=== PATIENT | female | born 1970 | race African-American/Black ===

== ENCOUNTER 2016-11-21 20:45 | Emergency (ER) | payer OTHER ==
[2016-11-21 21:08] VITALS: BP 145/69; PULSE 84; TEMP 98.8; BMI 30.8
[2016-11-21] MEDS ORDERED: ONDANSETRON 4 MG/2 ML VIAL IVPUSH ONE (21:14)
[2016-11-21] MEDS ORDERED: FAMOTIDINE 20 MG/50 ML IVPB 50 ML IVPB ONE ×2 (21:33→21:46)
[2016-11-21] MEDS ORDERED: SODIUM CHLORIDE 0.9% 1000 ML INFUS.BAG IV ONE (21:33)
[2016-11-21 21:44] LABS: BASOPHIL 0.5 % (0-2.0); EOSINOPHIL 0.6 % (0-4.5); MCH 29.7 pg (25.7-33.7); MCHC 34.2 g/dl (32.0-36.0); MEAN CELL VOLUME 87.1 fl (80-96); MEAN PLT VOLUME 8.1 fl (7.5-11.1); NEUTROPHILS 60.3 % (42.8-82.8); PLATELET COUNT 309 K/MM3 (134-434); RDW 12.8 % (11.6-15.6); WHITE BLOOD COUNT 7.4 K/mm3 (4.0-10.0)
[2016-11-21 22:07] LABS: ALBUMIN 4.6 g/dl (3.4-5.0); ALK PHOS 87 U/L (45-117); ANION GAP 12 (8-16); BILIRUBIN,TOTAL 0.5 mg/dL (0.2-1.0); CALCIUM 10.6 mg/dL (8.5-10.1); CO2 28 mmol/L (21-32); CREATININE 0.9 mg/dL (0.55-1.02); GLUCOSE,RANDOM 156 mg/dL (74-106); SGOT/AST 40 U/L (15-37); SGPT/ALT 63 U/L (12-78); TOT PROT 8.3 g/dl (6.4-8.2)
[2016-11-21] MEDS ORDERED: KETOROLAC TROMETHAMINE 30 MG/1 ML VIAL IVPUSH ONE (22:33)
[2016-11-21 22:47] LABS: URINE APPEARANCE CLOUDY; URINE BILIRUBIN NEGATIVE (NEGATIVE); URINE BLOOD 1+ (NEGATIVE); URINE COLOR YELLOW; URINE GLUCOSE (UA) NEGATIVE (NEGATIVE); URINE KETONE 1+ (NEGATIVE); URINE NITRITE NEGATIVE (NEGATIVE); URINE PROTEIN NEGATIVE (NEGATIVE); URINE UROBILINOGEN NEGATIVE mg/dL (0.2-1.0)
[2016-11-21 22:54] LABS: URINE BACTERIA RARE /hpf (NONE SEEN); URINE MUCUS RARE; URINE RBC 4 /hpf (0-3); URINE WBC 2 /hpf (3-5)
[2016-11-21] MEDS ORDERED: KETOROLAC TROMETHAMINE 30 MG/1 ML VIAL ONE (22:54)
--- NOTE | 2016-11-21 23:18 | PDOC ---
History of Present Illness - General Chief Complaint: Nausea/Vomiting Stated Complaint: ABD PAIN Time Seen by Provider: 11/21/16 21:13 - History of Present Illness Initial Comments: 11/21/16 23:16 CHIEF COMPLAINT: abd pain HISTORY OF PRESENT ILLNESS: 46 yo F with hx of "heartburn" presents to ED with epigastric pain since this morning. Patient states she ate a big meal last night before going to bed, and when she woke up she had abdominal pain that has continued all day. Patient states she felt nauseous and vomited once this morning, and had two normal stools and "one episode of watery stool" this evening. She denies any fever or chills. PAST MEDICAL HISTORY: Denies past medical history FAMILY HISTORY: Denies SOCIAL HISTORY: Denies tobacco, alcohol, illicit drug use. SURGICAL HISTORY: Denies ALLERGIES: PCN REVIEW OF SYSTEMS as per HPI PHYSICAL EXAM General Appearance: Well-appearing, appropriately dressed. No apparent distress. HEENT: EOMI, PERRLA, normal ENT inspection, normal voice, TMs normal, pharynx normal. No conjunctival pallor. No photophobia, scleral icterus. Respiratory/Chest: Lungs CTAB. Cardiovascular: RRR. S1, S2. Gastrointestinal/Abdominal: Epigastric tenderness. Negative Schuler's sign. Abdomen soft, non-distended. No organomegaly, pulsatile mass, guarding, hernia , hepatomegaly, splenomegaly. Musculoskeletal/Extremities: Normal inspection. FROM of all extremities, normal capillary refill. Pelvis Stable. No CVA tenderness. No tenderness to extremities, pedal edema, swelling, erythema or deformity. Integumentary: Appropriate color, dry, warm. No cyanosis, erythema, jaundice or rash Neurologic: mat packer II-XII intact. Fully oriented, alert. Appropriate mood/affect. Motor strength 5/5. No appreciable EOM palsy, facial droop or sensory deficit. 11/21/16 23:33 Past History - Past Medical History Allergies/Adverse Reactions: Allergies Allergy/AdvReac Type Severity Reaction Status Date / Time Penicillins Allergy Verified 11/21/16 21:07 Home Medications: Ambulatory Orders Pantoprazole Sodium [Protonix] 40 mg PO DAILY #14 tablet. 11/22/16 - Suicide/Smoking/Psychosocial Hx Smoking History: Never smoked Have you smoked in the past 12 months: No Information on smoking cessation initiated: No Hx Alcohol Use: Yes (social) Drug/Substance Use Hx: No *Physical Exam - Vital Signs Last Vital Signs Temp Pulse Resp BP Pulse Ox 98.8 F 84 18 145/69 98 11/21/16 21:04 11/21/16 21:04 11/21/16 21:04 11/21/16 21:04 11/21/16 21:04 ED Treatment Course - LABORATORY CBC & Chemistry Diagram: 11/21/16 21:37 11/21/16 21:37 - ADDITIONAL ORDERS Additional order review: Laboratory Results 11/21/16 11/21/16 11/21/16 22:22 22:22 21:37 Sodium 136 Potassium 3.9 Chloride 96 L Carbon Dioxide 28 Anion Gap 12 BUN 13 Creatinine 0.9 Creat Clearance w eGFR > 60 Random Glucose 156 H Calcium 10.6 H Total Bilirubin 0.5 AST 40 H ALT 63 Alkaline Phosphatase 87 Total Protein 8.3 H Albumin 4.6 Lipase Urine Color Yellow Urine Appearance Cloudy Urine pH 7.0 Urine Protein Negative Urine Glucose (UA) Negative Urine Ketones 1+ H Urine Blood 1+ H Urine Nitrite Negative Urine Bilirubin Negative Urine Urobilinogen Negative Urine RBC 4 Urine WBC 2 Ur Epithelial Cells Rare Urine Bacteria Rare Urine Mucus Rare Urine HCG, Qual Negative 11/21/16 21:13 Sodium Potassium Chloride Carbon Dioxide Anion Gap BUN Creatinine Creat Clearance w eGFR Random Glucose Calcium Total Bilirubin AST ALT Alkaline Phosphatase Total Protein Albumin Lipase 120 Urine Color Urine Appearance Urine pH Urine Protein Urine Glucose (UA) Urine Ketones Urine Blood Urine Nitrite Urine Bilirubin Urine Urobilinogen Urine RBC Urine WBC Ur Epithelial Cells Urine Bacteria Urine Mucus Urine HCG, Qual 11/21/16 21:37 RBC 4.94 MCV 87.1 MCHC 34.2 RDW 12.8 MPV 8.1 Neutrophils % 60.3 Lymphocytes % 34.3 Monocytes % 4.3 Eosinophils % 0.6 Basophils % 0.5 - Medications Given in the ED: ED Medications Discontinued Medications Generic Name Dose Route Start Last Admin Trade Name Freq PRN Reason Stop Dose Admin Famotidine/Sodium Chloride 50 mls @ 100 mls/hr 11/21/16 21:33 11/21/16 22:14 Pepcid 20 Mg Premixed Ivpb - IVPB 11/21/16 22:02 100 mls/hr ONCE ONE Administration Ondansetron HCl 8 mg 11/21/16 21:14 11/21/16 21:14 Zofran Injection IVPUSH 11/21/16 21:15 8 mg ONCE ONE Administration Sodium Chloride 1,000 ml 11/21/16 21:33 11/21/16 22:14 Normal Saline - IV 11/21/16 21:34 1,000 ml ONCE ONE Administration Medical Decision Making - Medical Decision Making 11/21/16 23:40 46 yo F with hx of "heartburn" presents to ED with epigastric pain since this morning. -CBC, CMP, lipase -Ua, Ucx, Upreg -Pepcid IV, Zofran -Toradol 30 mg Patient states she is feeling "somewhat better" after pepcid, zofran, and toradol but "it still feels a little weird in the middle. -Maalox, protonix, bentyl 11/22/16 00:24 Patient reports she is now feeling much better, "my pain is maybe like a 1 or 2 down from a 7 or 8 from when I first came in." Patient reports she wants to go home. Advised patient to follow up with primary care doctor and GI if symptoms persist. Advised patient of signs and symptoms for return to eR; patient verbalized understanding and agrees to plan. *DC/Admit/Observation/Transfer Diagnosis at time of Disposition: Abdominal pain Qualifiers: Abdominal location: epigastric Qualified Code(s): R10.13 - Epigastric pain; R10.13 - Epigastric pain GERD (gastroesophageal reflux disease) Qualifiers: Esophagitis presence: with esophagitis Qualified Code(s): K21.0 - Gastro- esophageal reflux disease with esophagitis; K21.0 - Gastro-esophageal reflux disease with esophagitis; K21.0 - Gastro-esophageal reflux disease with esophagitis - Discharge Dispostion Disposition: HOME Condition at time of disposition: Improved Admit: No - Prescriptions Prescriptions: Pantoprazole Sodium [Protonix] 40 mg PO DAILY #14 tablet. - Referrals Referrals: Murali Glynn [Primary Care Provider] - - Patient Instructions Printed Discharge Instructions: DI for Abdominal Pain-Adult, DI for Gastroesophageal Reflux Disease (GERD) Additional Instructions: Please take medication as prescribed. As discussed, you need to follow up with Dr. Kimball this week. I have provided a referral to a paper sales manager for you to see if your symptoms persist. If you develop any fever, chills, persistent vomiting, diarrhea, bloody stool, or any new or worsening symptoms, please return to the ER. - Post Discharge Activity Forms/Work/School Notes: Back to Work
[2016-11-21] MEDS ORDERED: DICYCLOMINE HCL 20 MG TABLET PO ONE (23:32)
[2016-11-21] MEDS ORDERED: PANTOPRAZOLE SODIUM 40 MG in SODIUM CHLORIDE 100 ML IVPB ONE (23:32)
[2016-11-21] MEDS ORDERED: MAG HYDROX/AL HYDROX/SIMETH 30 ML UNIT-DOSE CUP PO ONE (23:32)
[2016-11-21] MEDS ORDERED: DICYCLOMINE HCL 10 MG CAPSULE ONE (23:48)
[2016-11-21] MEDS ORDERED: MAG HYDROX/AL HYDROX/SIMETH 30 ML UNIT-DOSE CUP ONE (23:48)
[2016-11-21] MEDS ORDERED: PANTOPRAZOLE SODIUM 40 MG VIAL ONE (23:49)
[2016-11-22 14:09] LABS: URINE LEUK ESTERASE Negative (NEGATIVE)
== END 2016-11-22 00:35 | disposition home or self-care (01) ==
LOC: JER 20:45
PROC: 3E033GC Introduction of Other Therapeutic Substance into Peripheral Vein, Percutaneous Approach (ICD-10-PCS; principal; 2016-11-21)
PROC: 3E033GC Introduction of Other Therapeutic Substance into Peripheral Vein, Percutaneous Approach (ICD-10-PCS; 2016-11-21)
PROC: 3E0333Z Introduction of Anti-inflammatory into Peripheral Vein, Percutaneous Approach (ICD-10-PCS; 2016-11-21)
PROC: 3E033GC Introduction of Other Therapeutic Substance into Peripheral Vein, Percutaneous Approach (ICD-10-PCS; 2016-11-21)
DX: K21.0 Gastro-esophageal reflux disease with esophagitis (principal)
CPT/HCPCS: 36415; 80053; 81003; 81015; 83690; 84703; 85025; 87086; 87186; 99281-25

== ENCOUNTER 2018-05-06 07:27 | Emergency (ER) | payer OTHER ==
[2018-05-06 07:35] VITALS: BMI 29.4
[2018-05-06] MEDS ORDERED: FAMOTIDINE 20 MG/50 ML IVPB 20 MG/50 ML MG IVPB ONE ×2 (07:52→08:45)
[2018-05-06] MEDS ORDERED: ONDANSETRON 4 MG/2 ML VIAL IVPB ONE (07:52)
[2018-05-06] MEDS ORDERED: MAG HYDROX/AL HYDROX/SIMETH 30 ML UNIT-DOSE CUP PO ONE (07:52)
[2018-05-06] MEDS ORDERED: ACETAMINOPHEN 1000 MG/100 ML VIAL (NON FORMULARY) IVPB ONE (07:52)
--- NOTE | 2018-05-06 07:55 | PDOC ---
Attending Attestation - Resident Resident Name: RuthySaMariama - ED Attending Attestation I have performed the following: I have examined & evaluated the patient, The case was reviewed & discussed with the resident, I agree w/resident's findings & plan, Exceptions are as noted - HPI HPI: 05/06/18 08:44 47yo female with hx of DM - prescribed metformin this week, but hasn't started. Ate salad and fried chicken last night and today has felt burning in her epigastric region with radiation up into her chest. States she has felt acid reflux in the past and today feels similar. No n/v/d. No dysuria. No cp/sob. No fevers. Pt is nontoxic in appearance. - Physicial Exam PE: 05/06/18 09:33 Gen: aaox3, nad heart: +s1s2 reg lungs: cta b/l abd: soft, mild epigastric ttp, no rebound or guarding ext: no c/c/e - Medical Decision Making 05/06/18 07:55 I, Dr. Onelia Quinn, DO, attest that this document has been prepared under my direction and personally reviewed by me in its entirety. I further attest, that it accurately reflects all work, treatment, procedures and medical decision -making performed by me. 05/06/18 09:33 a/p: 47yo female with epigastric pain and burning sensation -suspect acid reflux and gastritis -bedside ultrasound negative for gallstones -neg murphys -will send labs, given hx of dm - hasn't started meds -will obtain ekg -will medicate and reassess -low suspicion for pancreatitis- abd is soft, will send lipase -ivf hydration 05/06/18 09:35 lipase negative lft normal no elevated wbc pain resolved will repeat lactate and po challenge if repeat lactate normal will dc with pepcid and GI follow up with Dr. Santo. Heart Score/ECG Review - ECG Intrepretation Comment:: 05/06/18 07:57 sinus at 79, nl axis, nl interval, no acute st/t wave findings
--- NOTE | 2018-05-06 08:09 | PDOC ---
History of Present Illness - General Chief Complaint: Pain, Acute Stated Complaint: PAIN Time Seen by Provider: 05/06/18 07:36 History Source: Patient Exam Limitations: No Limitations - History of Present Illness Initial Comments: 05/06/18 08:02 Pt is a 47yo F with PMH of DM (recently dx) presenting to ED for burning sensation in the abdomen and L side of chest. Pt states that this morning she woke up with a burning sensation diffusely in her abdomen. She drank mint tea and felt the pain go into her chest. She said she took Advil to help with the pain but it made it worse. She has had pain like this before and was told it was heartburn. She is not taking any antacids. She endorses nausea. Denies vomiting, bloody/tarry stools, diarrhea, sob, cough, pleuritic chest pain, leg swelling, back pain, flank pain, urinary symptoms. No recent abdominal surgeries. She had chicken last night, denies drinking. PMD: Renard PMH: see hpi PSH: abdominopasy, salpingoophorectomy Meds: none Allergies: PCN (hives) Social: occasional alcohol use Past History - Past Medical History Allergies/Adverse Reactions: Allergies Allergy/AdvReac Type Severity Reaction Status Date / Time Penicillins Allergy Verified 05/06/18 07:35 Home Medications: Ambulatory Orders Famotidine [Pepcid -] 20 mg PO BID #14 tablet 05/06/18 COPD: No GI Disorders: Yes (reflux) - Suicide/Smoking/Psychosocial Hx Smoking History: Never smoked Have you smoked in the past 12 months: No Hx Alcohol Use: Yes (social) Drug/Substance Use Hx: No Review of Systems - Review of Systems Constitutional: No: Chills, Fever HEENTM: No: Symptoms Reported Respiratory: No: Cough, Shortness of Breath Cardiac (ROS): Yes: See HPI. No: Lightheadedness, Palpitations, Syncope ABD/GI: Yes: Nausea, Abdominal cramping. No: Constipated, Diarrhea, Rectal Bleeding, Vomiting, Tarry Stools : No: Burning, Dysuria Musculoskeletal: No: Back Pain, Joint Pain, Neck Pain Integumentary: No: Symptoms Reported Neurological: No: Headache, Numbness, Tingling *Physical Exam - Vital Signs Last Vital Signs Temp Pulse Resp BP Pulse Ox 99.5 F 115 H 22 H 96/67 100 05/06/18 07:50 05/06/18 07:50 05/06/18 07:50 05/06/18 07:50 05/06/18 07:31 - Physical Exam General Appearance: Yes: Nourished, Appropriately Dressed. No: Apparent Distress HEENT: positive: EOMI, RUBI, Normal ENT Inspection Neck: positive: Trachea midline, Supple. negative: Lymphadenopathy (R), Lymphadenopathy (L) Respiratory/Chest: positive: Lungs Clear, Normal Breath Sounds. negative: Crackles, Rales, Wheezing Cardiovascular: positive: Regular Rhythm, Regular Rate, S1, S2. negative: Edema , JVD Vascular Pulses: Carotid (R): 2+, Carotid (L): 2+, Dorsalis-Pedis (R): 2+, Doralis-Pedis (L): 2+ Gastrointestinal/Abdominal: positive: Normal Bowel Sounds, Tender (diffuse tenderness), Soft Musculoskeletal: negative: CVA Tenderness Extremity: positive: Normal Capillary Refill. negative: Pedal Edema, Swelling Integumentary: positive: Normal Color, Dry, Warm Neurologic: positive: histologist technologist II-XII NML intact, Fully Oriented, Alert, Normal Mood/ Affect, Normal Response, Motor Strength / ED Treatment Course - LABORATORY CBC & Chemistry Diagram: 05/06/18 07:57 05/06/18 08:15 Medical Decision Making - Medical Decision Making 05/06/18 08:09 Pt is a 47yo F with PMH of DM (recently dx) presenting to ED for burning sensation in the abdomen and L side of chest. Pt states that this morning she woke up with a burning sensation diffusely in her abdomen. She drank mint tea and felt the pain go into her chest. She said she took Advil to help with the pain but it made it worse. She has had pain like this before and was told it was heartburn. She is not taking any antacids. She endorses nausea. Denies vomiting, bloody/tarry stools, diarrhea, sob, cough, pleuritic chest pain, leg swelling, back pain, flank pain, urinary symptoms. No recent abdominal surgeries. She had chicken last night, denies drinking. Vitals: wnl PE: diffuse abdominal tenderness ddx includes but not limited to gerd/gastritis, PUD, pancreatitis, cholecystitis , cholelithiasis, nephrolithiasis, pyelo, atypical ACS, AAA -labs, trop, lipase, lact -ekg -fluids, zofran, pepcid, maalox, iv tylenol will hold off imaging at this time, high suspicion for gerd/gastritis. will wait to see what labs are like to determine. 05/06/18 09:04 POCUS- no sonographic evidence of cholecystitis. LFTs normal, cbc normal. lactic 2.2 (pt getting hydrated). Will reassess second lact 2.4 will hydrate and check again 3rd lac 1.5. pt does not have pain, is asymptomatic and stable for dc. rx for pepcid and gi f/u. given return precautions 05/06/18 19:39 *DC/Admit/Observation/Transfer Diagnosis at time of Disposition: GERD (gastroesophageal reflux disease) Qualifiers: Esophagitis presence: esophagitis presence not specified Qualified Code(s): K21.9 - Gastro-esophageal reflux disease without esophagitis Abdominal pain Qualifiers: Abdominal location: unspecified location Qualified Code(s): R10.9 - Unspecified abdominal pain - Discharge Dispostion Disposition: HOME Condition at time of disposition: Improved - Prescriptions Prescriptions: Famotidine [Pepcid -] 20 mg PO BID #14 tablet - Referrals Referrals: Murali Glynn [Primary Care Provider] - Rohit Santo MD [Staff Physician] - - Patient Instructions Printed Discharge Instructions: DI for Gastroesophageal Reflux Disease (GERD) Additional Instructions: You were seen in the emergency room today for abdominal and chest pain. This is most likely GERD. A prescription has been sent for an antacid. Please take as directed. I recommend that you make an appointment with your primary care doctor so that you can be started on the proper medications to prevent heartburn. I also recommend seeing a GI doctor as well. Information is provided below. Try not to eat fried, fatty foods or consume a lot of alcohol as this can make the pain worse. Also try to avoid NSAIDs such as Advil, Motrin, Aleeve. Come back to the emergency room if pain gets worse, you start vomiting blood, there is blood in the stool or it looks very dark, you have worsening chest pain or if any new concerning symptom develops. Thank you - Post Discharge Activity Forms/Work/School Notes: Back to Work
[2018-05-06] MEDS ORDERED: SODIUM CHLORIDE 1,000 ML IV STA ×2 (08:13→11:40)
[2018-05-06 08:20] VITALS: PULSE 83
[2018-05-06 08:33] LABS: BASO % 0.6 % (0-2.0); HEMATOCRIT 39.1 % (32.4-45.2); HEMOGLOBIN 13.1 GM/dL (10.7-15.3); LYMPH % 45.8 % (8-40); MCH 29.6 pg (25.7-33.7); MCHC 33.5 g/dl (32.0-36.0); MEAN CELL VOLUME 88.3 fl (80-96); MEAN PLT VOLUME 8.2 fl (7.5-11.1); MONO % 6.9 % (3.8-10.2); NEUT % 45.7 % (42.8-82.8); PLATELET COUNT 219 K/MM3 (134-434); RBC 4.42 M/mm3 (3.60-5.2); RDW 12.8 % (11.6-15.6); WHITE BLOOD COUNT 4.8 K/mm3 (4.0-10.0)
[2018-05-06 08:44] LABS: ALK PHOS 117 U/L (45-117); ANION GAP 10 MMOL/L (8-16); BILIRUBIN,TOTAL 0.3 mg/dL (0.2-1); BLOOD UREA NITROGEN 16 mg/dL (7-18); CALCIUM 8.7 mg/dL (8.5-10.1); CHLORIDE 102 mmol/L (98-107); CO2 24 mmol/L (21-32); GLUCOSE,RANDOM 203 mg/dL (74-106); LIPASE 177 U/L (73-393); POTASSIUM 3.8 mmol/L (3.5-5.1); SGOT/AST 27 U/L (15-37); SGPT/ALT 44 U/L (13-61); SODIUM 136 mmol/L (136-145); TOT PROT 6.9 g/dl (6.4-8.2)
[2018-05-06] MEDS ORDERED: ACETAMINOPHEN INJECTION 100 ML IVPB ONE (08:44)
[2018-05-06] MEDS ORDERED: ONDANSETRON 4 MG/2 ML VIAL ONE (08:45)
[2018-05-06] MEDS ORDERED: MAG HYDROX/AL HYDROX/SIMETH 30 ML UNIT-DOSE CUP ONE (08:45)
[2018-05-06 11:40] VITALS: BP 138/73; TEMP 97.8
--- NOTE | 2018-05-08 10:25 | EKG ---
Test Reason : Blood Pressure : / mmHG Vent. Rate : 079 BPM Atrial Rate : 079 BPM P-R Int : 180 ms QRS Dur : 082 ms QT Int : 376 ms P-R-T Axes : 062 038 032 degrees QTc Int : 431 ms NORMAL SINUS RHYTHM NORMAL ECG NO PREVIOUS ECGS AVAILABLE Confirmed by NOEMY LOCKWOOD MD ([id number]) on 05/08/2018 10:24:33 AM Referred By: Confirmed By:NOEMY LOCKWOOD MD
== END 2018-05-06 14:05 | disposition home or self-care (01) ==
LOC: JER 07:27
PROC: 3E0337Z Introduction of Electrolytic and Water Balance Substance into Peripheral Vein, Percutaneous Approach (ICD-10-PCS; principal; 2018-05-06)
PROC: 3E0337Z Introduction of Electrolytic and Water Balance Substance into Peripheral Vein, Percutaneous Approach (ICD-10-PCS; 2018-05-06)
PROC: 3E033GC Introduction of Other Therapeutic Substance into Peripheral Vein, Percutaneous Approach (ICD-10-PCS; 2018-05-06)
PROC: 3E033GC Introduction of Other Therapeutic Substance into Peripheral Vein, Percutaneous Approach (ICD-10-PCS; 2018-05-06)
PROC: 3E033NZ Introduction of Analgesics, Hypnotics, Sedatives into Peripheral Vein, Percutaneous Approach (ICD-10-PCS; 2018-05-06)
PROC: BF43ZZZ Ultrasonography of Gallbladder and Bile Ducts (ICD-10-PCS; 2018-05-06)
DX: K21.9 Gastro-esophageal reflux disease without esophagitis (principal)
CPT/HCPCS: 36415; 80053; 83605; 83690; 84484; 85025; 93005; 93010; 99285-25; J0131; J7030

== ENCOUNTER 2018-05-22 03:28 | Emergency (ER) | payer OTHER ==
--- NOTE | 2018-05-22 04:20 | PDOC ---
History of Present Illness - General Stated Complaint: ABD PAIN Time Seen by Provider: 05/22/18 04:19 History Source: Patient Exam Limitations: No Limitations - History of Present Illness Initial Comments: 47 yo F w a pmh of recently diagnosed diabetes presents to the ER with sharp and burning epigastric and john-umbilical abdominal pain which have been ongoing for a couple weeks now. She states she woke up at 3 am with this intense pain and could not go back to sleep so she came to the ER to be evaluated. She was recently seen in our ED 2 weeks prior for the same complaint at which point she was diagnosed with GERD/PUD. She states the pain starts in her epigastric region and radiates around the left side of her chest. She tried drinking mint tea for the pain but it did not help much. She takes cinnamon pills for her diabetes. She endorses nausea and one episode of NBNB vomitus yesterday. She had a normal bowel movement this morning at 3 am when she woke up which was not bloody and was not diarrhea or constipation. She denies having SOB, leg swelling, radiation of her pain to the back, dysuria, frequency, or urgency. 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 PCP: Murali Glynn PSH: Left salpingectomy Social Hx: Drinks a significant amount of alcohol. Denies smoking or other substance usage. Allergies: Penicillins. Past History - Past Medical History Allergies/Adverse Reactions: Allergies Allergy/AdvReac Type Severity Reaction Status Date / Time Penicillins Allergy Verified 05/22/18 04:28 Home Medications: Ambulatory Orders Famotidine [Pepcid -] 20 mg PO BID #14 tablet 05/06/18 COPD: No GI Disorders: Yes (reflux) - Suicide/Smoking/Psychosocial Hx Smoking History: Never smoked Have you smoked in the past 12 months: No Hx Alcohol Use: Yes (social) Drug/Substance Use Hx: No Review of Systems - Review of Systems Able to Perform ROS?: Yes Comments:: CONSTITUTIONAL: Absent: fever, no chills, no fatigue EYES: Absent: visual changes ENT: Absent: ear pain, no sore throat CARDIOVASCULAR: Present: Chest pain Absent: no palpitations RESPIRATORY: Absent: cough, no SOB GI: Present: Abdominal pain, nausea, vomiting Absent: no constipation, no diarrhea GENITOURINARY: Absent: dysuria, no frequency, no hematuria MUSKULOSKELETAL: Absent: back pain, no arthralgia, no myalgia SKIN: Absent: rash NEURO: Present: headache *Physical Exam - Physical Exam Comments: GENERAL: Well-appearing, well-nourished. Mild distress. HEENT: Normocephalic, atraumatic. PERRL, EOM intact. CARDIOVASCULAR: Normal S1, S2. Regular rate and rhythm. PULMONARY: No evidence of respiratory distress. Lungs clear to auscultation bilaterally. No wheezing, rales or rhonchi. ABDOMEN: There is significant epigastric TTP. There is also john-umbilical TTP. There is no pain in the LUQ, RUQ, LLQ, RLQ, or suprapubic regions. Normal bowel sounds. No CVA tenderness. EXTREMITIES: Normal ROM in all four extremities. No gross deformities. SKIN: Warm, dry. No rash NEUROLOGICAL: No focal neurological deficits. ED Treatment Course - LABORATORY CBC & Chemistry Diagram: 05/22/18 04:38 05/22/18 04:38 Medical Decision Making - Medical Decision Making 47 yo F w a pmh of recently diagnosed diabetes presents to the ER with sharp and burning epigastric and john-umbilical abdominal pain which have been ongoing for a couple weeks now. She states she woke up at 3 am with this intense pain and could not go back to sleep so she came to the ER to be evaluated. She was recently seen in our ED 2 weeks prior for the same complaint at which point she was diagnosed with GERD/PUD. She states the pain starts in her epigastric region and radiates around the left side of her chest. She tried drinking mint tea for the pain but it did not help much. She takes cinnamon pills for her diabetes. She endorses nausea and one episode of NBNB vomitus yesterday. She had a normal bowel movement this morning at 3 am when she woke up which was not bloody and was not diarrhea or constipation. She denies having SOB, leg swelling, radiation of her pain to the back, dysuria, frequency, or urgency. 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 VS: WNL DDx IBNLT: GERD, PUD, gastritis, pancreatitis, cholecystitis, cholelithiasis, kidney stones, UTI/Pylo, SBO, ACS/NH. Plan: Labs, Urine, IV hydration, EKG, analgesia, GI cocktail, +/-CTAP, re- assess. EKG: NS Labs: elevated glucose of 237, mildly elevated LFT's. Patient feels better after GI cocktail and admits this is likely bc of her alcohol consumption. - Will give a touch of morphine and DC w GI fu Disposition: probable GERD/PUD secondary to alcohol abuse *DC/Admit/Observation/Transfer Diagnosis at time of Disposition: GERD (gastroesophageal reflux disease), Abdominal pain - Discharge Dispostion Disposition: HOME Condition at time of disposition: Improved Decision to Admit order: No - Referrals Referrals: Murali Glynn [Primary Care Provider] - Rohit Santo MD [Staff Physician] - - Patient Instructions Printed Discharge Instructions: Gastroesophageal Reflux Disease (Alternative Therapy), Heartburn -- Overview Additional Instructions: You came into the ER with abdominal pain. We believe this is gastric reflux and heart burn. IT IS EXTREMELY IMPORTANT TO STOP DRINKING ALCOHOL. Take tylenol, zantac, and maalox as needed for pain control. Drink plenty of fluids. Try to avoid taking advil/ibuprofen/motrin. We are giving you the number of a candy packer to call up and schedule an appointment with. Please make sure to call and schedule an appointment in the next 3 to 5 days. Come back to the ER if your pain worsens or you have any other new or worsening concerns. Thank you for coming to the [facility] ER. We hope you feel better soon! Print Language: FRENCH - Post Discharge Activity Forms/Work/School Notes: Back to Work
[2018-05-22 04:28] VITALS: BP 159/73; PULSE 76; TEMP 98.4; BMI 29.2
[2018-05-22] MEDS ORDERED: SODIUM CHLORIDE 1,000 ML IV STA (04:28)
[2018-05-22] MEDS ORDERED: ACETAMINOPHEN 1000 MG/100 ML VIAL (NON FORMULARY) IVPB ONE (04:28)
[2018-05-22] MEDS ORDERED: FAMOTIDINE 20 MG/50 ML IVPB 20 MG/50 ML MG IVPB ONE ×2 (04:28→05:13)
[2018-05-22] MEDS ORDERED: MAG HYDROX/AL HYDROX/SIMETH -MYLANTA- ORAL SUSPENSION PO ONE (04:29)
[2018-05-22] MEDS ORDERED: ONDANSETRON 4 MG/2 ML VIAL IVPUSH ONE (04:29)
--- NOTE | 2018-05-22 04:39 | PDOC ---
Attending Attestation - Resident Resident Name: Anant Guillaume - ED Attending Attestation I have performed the following: I have examined & evaluated the patient, The case was reviewed & discussed with the resident, I agree w/resident's findings & plan - HPI HPI: 05/22/18 05:29 Pt comes with epigastric pain; GERD; lay down after eating a huge meal last night and drinking several alcoholic beverages. Pt has no fever and no flank pain. She has normal labs and she is feeling better with protonix and NSS> SHe will habe 1mg morphine, as the ofirmev is not enough for the gassy pain. - Physicial Exam PE: 05/22/18 05:31 Agree with resident exam. Pt's epig pain is improved. She has no rebound and no guarding and she has no flank pain. No suprapubic pain. She get s a menses. - Medical Decision Making 05/22/18 05:32 Home with GI follow up. Decrease or cut out alcohol intake. 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 SHe understands that it is bad for her DM.
[2018-05-22] MEDS ORDERED: ACETAMINOPHEN INJECTION 100 ML IVPB ONE (04:40)
[2018-05-22] MEDS ORDERED: MAG HYDROX/AL HYDROX/SIMETH 30 ML UNIT-DOSE CUP ONE (04:40)
[2018-05-22] MEDS ORDERED: ONDANSETRON 4 MG/2 ML VIAL ONE (04:41)
[2018-05-22 04:50] LABS: BASO % 0.7 % (0-2.0); EOS % 2.3 % (0-4.5); HEMOGLOBIN 13.7 GM/dL (10.7-15.3); LYMPH % 52.4 % (8-40); MCH 30.8 pg (25.7-33.7); MCHC 34.3 g/dl (32.0-36.0); MEAN CELL VOLUME 89.8 fl (80-96); MEAN PLT VOLUME 8.1 fl (7.5-11.1); MONO % 6.2 % (3.8-10.2); NEUT % 38.4 % (42.8-82.8); PLATELET COUNT 260 K/MM3 (134-434); RBC 4.46 M/mm3 (3.60-5.2); RDW 12.8 % (11.6-15.6); WHITE BLOOD COUNT 5.5 K/mm3 (4.0-10.0)
[2018-05-22 05:09] LABS: ALBUMIN 4.2 g/dl (3.4-5.0); ALK PHOS 119 U/L (45-117); ANION GAP 8 MMOL/L (8-16); BILIRUBIN,TOTAL 0.3 mg/dL (0.2-1); BLOOD UREA NITROGEN 19 mg/dL (7-18); CALCIUM 9.2 mg/dL (8.5-10.1); CHLORIDE 101 mmol/L (98-107); CO2 28 mmol/L (21-32); GLUCOSE,RANDOM 237 mg/dL (74-106); LIPASE 205 U/L (73-393); POTASSIUM 4.1 mmol/L (3.5-5.1); SGOT/AST 38 U/L (15-37); SGPT/ALT 71 U/L (13-61); SODIUM 137 mmol/L (136-145); TOT PROT 7.5 g/dl (6.4-8.2)
[2018-05-22] MEDS ORDERED: morphine CARPU-JECT 2 MG/1 ML DISP.SYRIN IVPUSH ONE (05:29)
[2018-05-22] MEDS ORDERED: MORPHINE SULFATE 2 MG/ML VIAL ONE (05:34)
[2018-05-22 06:19] LABS: PH,URINE 5.5 (5.0-8.0); URINE APPEARANCE CLEAR; URINE BILIRUBIN NEGATIVE (NEGATIVE); URINE COLOR YELLOW; URINE GLUCOSE (UA) 2+ (NEGATIVE); URINE KETONE NEGATIVE (NEGATIVE); URINE LEUK ESTERASE NEGATIVE (NEGATIVE); URINE NITRITE NEGATIVE (NEGATIVE); URINE PROTEIN NEGATIVE (NEGATIVE); URINE UROBILINOGEN 0.2 mg/dL (0.2-1.0)
[2018-05-22] MEDS ORDERED: DICYCLOMINE HCL 20 MG TABLET PO ONE (06:36)
--- NOTE | 2018-05-22 10:26 | EKG ---
Test Reason : Blood Pressure : / mmHG Vent. Rate : 070 BPM Atrial Rate : 070 BPM P-R Int : 184 ms QRS Dur : 074 ms QT Int : 396 ms P-R-T Axes : 039 038 019 degrees QTc Int : 427 ms NORMAL SINUS RHYTHM NORMAL ECG WHEN COMPARED WITH ECG OF 06-MAY-2018 07:31, NO SIGNIFICANT CHANGE WAS FOUND Confirmed by STEPHANIE FERREIRA MD ([id number]) on 05/22/2018 10:26:24 AM Referred By: Confirmed By:STEPHANIE FERREIRA MD
== END 2018-05-22 06:56 | disposition home or self-care (01) ==
LOC: JER 03:28
PROC: 3E033GC Introduction of Other Therapeutic Substance into Peripheral Vein, Percutaneous Approach (ICD-10-PCS; principal; 2018-05-22)
PROC: 3E033NZ Introduction of Analgesics, Hypnotics, Sedatives into Peripheral Vein, Percutaneous Approach (ICD-10-PCS; 2018-05-22)
PROC: 3E033NZ Introduction of Analgesics, Hypnotics, Sedatives into Peripheral Vein, Percutaneous Approach (ICD-10-PCS; 2018-05-22)
PROC: 3E033GC Introduction of Other Therapeutic Substance into Peripheral Vein, Percutaneous Approach (ICD-10-PCS; 2018-05-22)
DX: K21.9 Gastro-esophageal reflux disease without esophagitis (principal); E11.9 Type 2 diabetes mellitus without complications
CPT/HCPCS: 36415; 80053; 81003; 83690; 84484; 84703; 85025; 93005; 93010; 99283-25; J0131; J7030

== ENCOUNTER 2020-07-29 04:58 | Day surgery (SDC) | payer BC ==
[2020-06-19 15:15] VITALS: BMI 25.5
[2020-07-29 08:47] VITALS: TEMP 97.8
[2020-07-29 09:32] VITALS: BP 131/76; PULSE 73
== END 2020-07-29 10:00 | disposition home or self-care (01) ==
LOC: JASU-ENDO 04:58
PROVIDERS: ATTEND Internal Medicine Gastroenterology
PROC: 0DBN8ZX Excision of Sigmoid Colon, Via Natural or Artificial Opening Endoscopic, Diagnostic (ICD-10-PCS; 2020-07-29)
PROC: 0DBP8ZX Excision of Rectum, Via Natural or Artificial Opening Endoscopic, Diagnostic (ICD-10-PCS; principal; 2020-07-29 08:15)
DX: Z12.11 Encounter for screening for malignant neoplasm of colon (principal); K57.30 Diverticulosis of large intestine without perforation or abscess without bleeding; K62.1 Rectal polyp; K64.8 Other hemorrhoids; D12.5 Benign neoplasm of sigmoid colon
CPT/HCPCS: 82962; 88305-TC